=== PATIENT | female | born 1995 | race Hispanic/Latino ===

== ENCOUNTER 2016-04-23 19:43 | Emergency (ER) | payer OTHER ==
[~2016-04-23] VITALS: Ht 162.6 cm; Wt 76.4 kg
[2016-04-23 20:01] VITALS: BP 108/70; PULSE 115; RESP 18; O2SAT 96
[2016-04-23] MEDS ORDERED: 0.9% Sodium Chloride 1,000 ML IV ONE (20:22)
[2016-04-23] MEDS ORDERED: oxyCODONE-Acetamin 5-325 mg Tablet PO ONE (20:40)
[2016-04-23 20:46] LABS: BASOPHILS % (AUTO) 0.1 % (0-3); EOSINOPHILS % (AUTO) 0.2 % (0-5); MONOCYTES % (AUTO) 4.1 % (4-12); Mean Corpuscular Hemoglobin 30.3 pg (27.0-35.0); Mean Corpuscular Volume 87.4 fL (81-100); NEUTROPHILS % (AUTO) 91.3 % (40-74); Platelet Count 346 bil/L (150-400)
[2016-04-23] MEDS: Ondansetron 2 mg/mL 2 mL Inj IV PRN ×2 (20:53→22:47)
--- NOTE | 2016-04-23 20:53 | ED.REPORT ---
HPI-General Illness Date of Service Apr 23, 2016 ED Provider: Carl William DO History of Present Illness: Patient is a 20 y.o. F with past medical history of asthma, chronic mid backpain, otherwise healthy Back pain constant bilateral mid - low back, described as sharp "as if someone was stabbing me" pain does not radiate. Began afternoon today without provocation Worse with standing and walking. Made better with laying on flat surface. No recent injuries, similar pain to prior episodes Saw PCP last week for back problems, PCP Dr. Jj Tai concerned for anemia subjective fever evening Associated with headaches, vomiting, chills, dizziness Denies dysuria, constiaption, diarrhea, numbness tingling, changes in vision, Patient stated that pain is assocated with periods, currently menstruating, Not currently sexually active, uses condoms Nursing Notes Stated Complaint: BACK ACHE,VOMITING,CHILLS,DIZZY Chief Complaint: General Complaint Nursing Notes Reviewed: Yes Allergies: Coded Allergies: No Known Allergies (Unverified Allergy, Unknown, 08/07/13) General Time Seen by MD: 20:30 Chief Complaint Back pain (bilateral mid back) Hx Obtained From: Patient Arrived By: Walk-in Sudden in Onset?: Yes Onset Occurred: 5 - 8 hours ago Symptom Duration: Since onset Location: : Back Quality: Sharp Severity: Current: Pain level 10 out of 10 Severity: Maximum: Pain level 5 out of 10 Past Medical History Past Medical History Asthma Chronic back pain Past Surgical History none reported Smoking History Never Smoker Social History Alcohol Use: "Social" Review of Systems Full Review of Systems Constitutional: Reports: Chills, Fever Eyes: Denies: Blurred bilateral, Photophobia, Visual loss bilateral Respiratory: Denies: Dyspnea on exertion, Hemoptysis, Non-productive cough Cardiovascular: Denies: Chest pain, Edema, Palpitations GI: Reports: Abdominal pain, Nausea, Vomiting, Denies: Bloody/tarry stool, Constipation, Diarrhea Female: Denies: Dysuria, Flank pain, Hematuria, Pelvic pain, Urinary frequency, Urination decreased Complete sys rev & neg: except as marked. Physical Exam Vital Signs Vital Signs Date Time Temp Pulse Resp B/P Pulse Ox O2 Delivery O2 Flow Rate FiO2 04/24/16 01:08 36.9 99 18 97/54 97 Room Air 04/23/16 23:24 36.9 99 18 97/54 97 Room Air 04/23/16 20:01 37.9 115 18 108/70 96 Room Air Initial VS: Reviewed, Vital signs abnormal (tachycardic, elevated temp) General/Constitutional: Well-developed, Well-nourished Head / Eyes: Atraumatic, Normocephalic, PERRL ENT: Mucous membranes moist, Conjunctiva normal, No scleral icterus Neck: Supple, Non-tender, Full range of motion Respiratory: Breath sounds normal, Clear to auscultation, No respiratory distress Cardiovascular: Regular rate & rhythm, Heart sounds normal, Intact distal pulses Back: No CVA tenderness Extremities: Vascular intact, Neuro intact, No swelling, No tenderness Skin: Warm, Dry, No cyanosis Neurologic: Alert, Oriented, Nonfocal Tenderness/Guarding/Rebound: Positive: Tender LLQ... (Mild), Tender RLQ... ( Mild), Tender RUQ... (Mild), Negative: Guarding involuntary, Guarding voluntary, Rebound localized Interpretation & Diagnostics Lab Results Interpretation Result Diagram: 04/23/16203504/23/162035 Test 04/23/16 20:36 04/23/16 20:43 White Blood Count 17.6th/mm3 (3.8-10.1) Red Blood Count 4.59mil/mm3 (3.90-5.20) Hemoglobin 13.9g/dL (12.0-15.6) Hematocrit 40.1% (35.0-46.0) Mean Corpuscular Volume 87.4fL (81-100) Mean Corpuscular Hemoglobin 30.3pg (27.0-35.0) Mean Corpuscular Hemoglobin Concent 34.7% (32.0-37.0) Red Cell Distribution Width 12.7% (12.3-15.4) Platelet Count 346bil/L (150-400) Neutrophils (%) (Auto) 91.3% (40-74) Lymphocytes (%) (Auto) 4.0% (14-46) Monocytes (%) (Auto) 4.1% (4-12) Eosinophils (%) (Auto) 0.2% (0-5) Basophils (%) (Auto) 0.1% (0-3) D-Dimer < 0.5mg/L (<0.50) Sodium Level 136mEq/L (134-144) Potassium Level 4.4mEq/L (3.5-5.2) Chloride Level 100mEq/L (97-108) Carbon Dioxide Level 22mmol/L (18-29) Blood Urea Nitrogen 13mg/dL (6-20) Creatinine 0.54mg/dL (0.57-1.00) Estimat Glomerular Filtration Rate 208mL/min (>59) Glucose Level 121mg/dL (60-99) Lactic Acid Level 1.3mmol/L (0.4-2.0) Calcium Level 9.2mg/dL (8.5-10.1) Magnesium Level 1.9mg/dL (1.6-2.6) Total Bilirubin 0.6mg/dL (0.0-1.2) Aspartate Amino Transf (AST/SGOT) 16U/L (0-50) Alanine Aminotransferase (ALT/SGPT) 12U/L (0-32) Alkaline Phosphatase 80U/L (25-150) Total Protein 7.6g/dL (6.4-8.4) Albumin 4.3g/dL (3.4-5.0) Lipase 13U/L (13-60) Procalcitonin 0.08ng/mL (0.00-0.08) Urine Color Yellow (YELLOW) Urine Appearance Clear (CLEAR,HAZY) Urine pH 5.5 (5.0-8.0) Urine Specific Murray 1.025 (1.003-1.035) Urine Protein Negativemg/dL (NEG,TRACE) Urine Glucose (UA) Negativemg/dL (NEGATIVE) Urine Ketones 15mg/dL (NEGATIVE) Urine Occult Blood Moderate (NEGATIVE) Urine Nitrite Negative (NEGATIVE) Urine Bilirubin Negative (NEGATIVE) Urine Urobilinogen Normalmg/dL (NORMAL) Urine Leukocyte Esterase Negative (NEGATIVE) Urine RBC 0-2/hpf (0-2) Urine WBC 0-5/hpf (0-5) Urine Epithelial Cells Moderate/hpf (NONE-MOD) Urine Crystals None seen (NONE SEEN) Urine Bacteria Few/hpf (NONE-FEW) Urine Hyaline Casts None/lpf (NONE) Urine Granular Casts None seen (NONE SEEN) Urine Waxy Casts None seen (NONE SEEN) Urine Red Blood Cell Casts None seen (NONE SEEN) Urine White Blood Cell Casts None seen (NONE SEEN) Urine Mucus Present (None Seen) Urine Trichomonas None seen (NONE SEEN) Urine Yeast None (NONE SEEN) Urinalysis Comment None Urine Culture Reflexed Not indicated Re-Eval/Medical Decision Med Decision/Clinical Course Patient is a 20 y.o. F with sudden onset mid to low back pain, associated with abdominal pain, nauea, vomiting, fever, chills. V/S at presentation meet criteria for SIRS, work up to identify source of infection and sepesis ruled out. Patient signs and symptoms due to acute constipation. With patient histoy of heavy periods and assocated back pain, raises concern for catamenial pneumothroax. DDx Gallstones, UTI, pyelonephritis, pancratitis, gastritis,catamenial pneumothrorax, pulmonary emboli, constipation, gastritis R/o Urine preg negative UA negative for source of infection CBC elv WCT 17 CMP negative Lipase negative CXR negative for signs of infection CT abdomen and pelvis no signs of acute infection, hydronephrosis, signs of consitpation D-dimer negative no chest CTA indicated Discharge & Departure Primary Impression: Back pain Back pain location: thoracic back pain Chronicity: acute Back pain laterality: midline Qualified Code: M54.6 - Pain in thoracic spine Additional Impressions: Abdominal pain Abdominal location: generalized Qualified Code: R10.84 - Generalized abdominal pain Febrile illness Disposition: Home Discharge Condition All VS Reviewed: Yes Condition: Stable Patient Instructions: Acute Abdominal Pain (DC), Constipation (DC) Additional Instructions: During you visit to [facility] Emergency Department we obtained blood work for infectious markers, hemoglobin levels, and electrolytes. We obtained high resolution imaging of your brain and chest and abdomen. It did not show any emergent signs of infection. You symptoms are likely due to dehydration and constipation as visualized on the CT scan of your abdomen. All your lab values were within normal limits and your imaging showed no acute processes or abnormalities. Your vital signs were stable and safe for discharge. We will send you home with - Pain medications Percocet - Nausea medications Zofran - Migralam - Colace When taking Percocet pain medications DO NOT drive, DO NOT drink alcohol , DO NOT take extra acetaminophen (Tylenol). Do not hesitate to call emergency services or your primary care physician if you experience any of the following. - High unrelenting fevers. - Uncontrolled vomiting. - Severe hypertension. - Syncope or loss of consciousness. - Chest pain or severe shortness of breath. Follow up with your primary care physician in 1-2 weeks time following your emergency department visit for medication checks and general well-being. Referrals: Jj Tai MD (PCP) Attending Statement I took a history performed a physical examination. I concur with the resident' s note above. Healthy 20-year-old female with upper abdominal pain radiating into her back. She also some mildly pleuritic lower thoracic pain. No midline spinal pain. No evidence of a myelopathy. She had diffusely tender abdomen without rebound guarding or rigidity. Diagnostics were performed. Myocardial infarction ruled out based on history and physical examination and risks. Pulmonary emboli seems unlikely with a negative d-dimer. Pneumothorax ruled out. Acute abdominal pathology seems unlikely based on history physical and diagnostics. She was symptomatically treated at discharge was pain-free and looked well. Recommended close outpatient follow-up. copies to: Jj Tai MD, AARON J DO Apr 23, 2016 20:36 Carl William DO Apr 24, 2016 19:22
[2016-04-23 20:56] LABS: APPEARANCE,URINE CLEAR (CLEAR,HAZY); COLOR,URINE YELLOW (YELLOW); OCCULT BLOOD,URINE MODERATE (NEGATIVE); PH,URINE 5.5 (5.0-8.0); UROBILINOGEN,URINE NORMAL (NORMAL)
[2016-04-23 21:09] LABS: Magnesium 1.9 mg/dL (1.6-2.6)
[2016-04-23] MEDS ORDERED: 0.9% Sodium Chloride 1,000 ML IV SCH (21:10)
--- NOTE | 2016-04-23 21:50 | DRSVH ---
PROCEDURE: X-RAY CHEST, TWO VIEWS ([id number]) INDICATIONS: sob TECHNIQUE: 2 views of the chest were acquired. COMPARISON: [facility], , CHEST 2VW, 12/21/2008, 15:38. FINDINGS: Surgical changes and devices: None. Lungs and pleura: No pleural effusions or pneumothorax. Lungs are clear. Mediastinum: Mediastinal contours are normal. Heart size is normal. Bones and chest wall: No suspicious bony abnormalities. Soft tissues appear unremarkable. IMPRESSION: No abnormality is seen in the two-view chest. Cause of shortness of breath is not identif ied. Dictated by: Jose Daniel Durán M.D. on 04/23/2016 at 21:49 Approved by: Jose Daniel Durán M.D. on 04/23/2016 at 21:50
[2016-04-23 23:24] VITALS: BP 97/54; PULSE 99; RESP 18; O2SAT 97
[2016-04-24] MEDS ORDERED: _Ondansetron ODT 4 mg Tablet PO PRN (00:05)
[2016-04-24] MEDS ORDERED: _oxyCODONE/APAP 5-325 mg Tablet PO PRN (00:05)
[2016-04-24] MEDS ORDERED: Polyethylene Glycol (PEG) 17 Gm Powder PO ONE (00:05)
[2016-04-24 01:08] VITALS: BP 97/54; PULSE 99; RESP 18; O2SAT 97
--- NOTE | 2016-04-24 07:40 | DRSVH ---
PROCEDURE: CT ABDOMEN AND PELVIS WITH CONTRAST ([id number]) INDICATIONS: Elevated white count with abdominal and back pain TECHNIQUE: After the administration of oral and intravenous contrast, 5 mm thick sections acquired from the diap hragms to the symphysis. 5 mm thick coronal and sagittal reformats were performed. For radiation do se reduction, the following was used: automated exposure control, adjustment of mA and/or kV accordi ng to patient size. COMPARISON: [facility], US, US ABDOMEN, 04/23/2016, 21:41. FINDINGS: Image quality: Excellent. ABDOMEN: Lung bases: There is mild dependent atelectasis. Heart size is normal. There is a small hiatal carisa ia. Solid organs: Liver and spleen are normal in size and enhancement. Gallbladder appears within miroslava l limits. Biliary system is non-dilated. Pancreas enhances normally. No adrenal nodules. Kidneys are normal in size and enhancement, without hydronephrosis. Peritoneum and bowel: Stomach, small bowel, and colon loops are normal in caliber and wall thickness . The appendix is normal in appearance. No free fluid or air. Nodes and vessels: No retroperitoneal or mesenteric adenopathy. Aorta and inferior vena cava are no rmal in caliber. Miscellaneous: No ventral hernias. PELVIS: Genitourinary: Bladder wall thickness is normal. Miscellaneous: No inguinal hernias or adenopathy. Bones: No suspicious bony lesions. No vertebral body compression fractures. IMPRESSION: 1. No definite acute intra-abdominal abnormality. Specifically, no evidence of appendicitis or hydr onephrosis. Dictated by: Tyshawn Stewart M.D. on 04/24/2016 at 7:24 Approved by: Tyshawn Stewart M.D. on 04/24/2016 at 7:38
--- NOTE | 2016-04-24 08:46 | DRSVH ---
PROCEDURE: US ABDOMEN INDICATIONS: abdominal tenderness RUQ TECHNIQUE: Real-time scanning was performed of the abdominal and retroperitoneal organs, with image documentatio n. COMPARISON: [facility], CT, CT ABD PELVIS W CON, 04/23/2016, 22:23. FINDINGS: Liver length: 18.29 cm Gallbladder Wall Thickness: 1.70 mm CHD: 1.10 mm CBD: 1.60 mm Spleen length: 8.74 cm Right kidney length: 10.71 cm Left kidney length: 6.51 cm Aorta(Proximal): 2.02 cm Aorta(Mid): 1.65 cm Aorta(Distal): 1.49 cm RCIA: 1.07 cm LCIA: 1.00 cm Liver: Liver is normal in size and homogeneous in echotexture. Gallbladder: Normal gallbladder. Biliary ducts: Intrahepatic bile ducts are non-dilated. Extrahepatic bile duct caliber is normal. Normal is 6-7 mm or less in diameter, or 10 mm or less post-cholecystectomy. Pancreas: Visualized portions of the pancreas are sonographically normal. Spleen: Spleen is normal in size and homogeneous in echotexture. Kidneys: Kidneys are normal in size and echotexture. No hydronephrosis or nephrolithiasis. No sunitha d masses. Aorta: Visualized aorta is normal in caliber at less than 3 cm. Iliacs: Proximal common iliac arteries are normal in caliber at less than 2.5 cm. IVC: Intrahepatic inferior vena cava is patent. Miscellaneous: No free abdominal fluid. IMPRESSION: Limited exam demonstrating no definite source for right upper quadrant pain. Dictated by: Mayco Campos Amol Interpreted: Mary Hoff MD on 04/24/2016 at 8:44 Transcribed by: REGINE on 04/24/2016 at 8:46 Approved by: Mary Hoff M.D. on 04/24/2016 at 16:18
== END 2016-04-24 01:09 | disposition home or self-care (01) ==
LOC: SED 19:43
DX: M54.6 Pain in thoracic spine (principal); R10.84 Generalized abdominal pain; R50.9 Fever, unspecified
CPT/HCPCS: 36415; 71020; 74177; 76700; 80053; 81000; 81025; 82308; 83605; 83690; 83735; 85025; 85379; 96361; 96374; 96375; 96376; 99285; J2405; J7030; Q9967

== ENCOUNTER 2016-08-29 13:34 | Emergency (ER) | payer OTHER ==
[2016-08-29 13:49] VITALS: BP 106/73; PULSE 98; RESP 14; O2SAT 99
[2016-08-29 14:49] LABS: BASOPHILS % (AUTO) 0.5 % (0-3); EOSINOPHILS % (AUTO) 2.1 % (0-5); Mean Corpuscular Hemoglobin 29.7 pg (27.0-35.0); Mean Corpuscular Volume 85.7 fL (81-100); NEUTROPHILS % (AUTO) 66.4 % (40-74); Platelet Count 306 bil/L (150-400)
[2016-08-29 14:54] VITALS: BP 104/61; PULSE 88; RESP 17; O2SAT 98
--- NOTE | 2016-08-29 15:32 | ED.REPORT ---
HPI-General Illness Date of Service Aug 29, 2016 ED Provider: Gopal Aguilar MD Patient is a 20 year old female with a hx of asthma who presents to the ED s/p consuming approximately 20 [id number] sleeping pills at 1320 today. She reports she got in an argument with her mom and took the pills to try to hurt herself. Patient does not know what pills they were but reports they were purple capsules. Her only complaint is fatigue. She denies hallucinations, homicidal ideation, trouble breathing, or any other symptoms. She reports she has considered suicide before but has never gotten this far before. She did not drink alcohol today. Nursing Notes Stated Complaint: SUICIDAL IDEATION Chief Complaint: General Complaint Nursing Notes Reviewed: Yes Allergies: Coded Allergies: No Known Allergies (Unverified Allergy, Unknown, 08/29/16) General Time Seen by MD: 15:10 Chief Complaint Other (Suicide attempt ) Hx Obtained From: Patient Arrived By: Walk-in Sudden in Onset?: Yes Onset Occurred: 1 - 4 hours ago Severity: Current: No pain currently Severity: Maximum: No pain Associated with: Denies: Difficulty breathing Pertinent Negative: Pt denies other symptoms Context Related History: Reports Asthma, Denies Seizure disorder Past Medical History Past Medical History Asthma Chronic back pain Past Surgical History none reported Smoking History Never Smoker Social History Alcohol Use: "Social" Drug Use: Denies drug use Ambulatory Status Independent Review of Systems +suicide attempt via overdose Full Review of Systems Respiratory: Denies: Shortness of breath Psychiatric: Denies: Hallucinations, auditory, Hallucinations, visual, Homicidal ideation Complete sys rev & neg: except as marked. Physical Exam Nursing note and vitals reviewed. Constitutional: Well-developed, well-nourished. Not diaphoretic. Head: Normocephalic and atraumatic. Mouth/Throat: Oropharynx is clear and moist. No oropharyngeal exudate. Neck: Supple, no tracheal deviation. Cardiovascular: Normal rate, regular rhythm. Equal and intact distal pulses throughout. Pulmonary/Chest: Effort normal and breath sounds normal. No respiratory distress. Musculoskeletal: Range of motion grossly intact, moving all extremities. Neurological: AOx3. Grossly nonfocal exam. Strength and sensation intact and equal to bilateral upper and lower extremities. Skin: Warm and dry, no rashes or pallor appreciated. Psychiatric: Appropriate mood and affect. Behavior appears normal. Active suicidal ideation with plan. No HI or auditory or visual hallucinations. Vital Signs Vital Signs Date Time Temp Pulse Resp B/P Pulse Ox O2 Delivery O2 Flow Rate FiO2 08/29/16 22:30 72 18 95/39 100 Room Air 08/29/16 16:57 59 16 115/63 98 Room Air 08/29/16 14:54 88 17 104/61 98 Room Air 08/29/16 13:49 36.2 98 14 106/73 99 Room Air Interpretation & Diagnostics Lab Results Interpretation Result Diagram: 08/29/16 1439 08/29/16 1439 Test 08/29/16 14:37 08/29/16 14:39 08/29/16 18:20 Hold Urine Received (Received) White Blood Count 7.5th/mm3 (3.8-10.1) Red Blood Count 4.27mil/mm3 (3.90-5.20) Hemoglobin 12.7g/dL (12.0-15.6) Hematocrit 36.6% (35.0-46.0) Mean Corpuscular Volume 85.7fL (81-100) Mean Corpuscular Hemoglobin 29.7pg (27.0-35.0) Mean Corpuscular Hemoglobin Concent 34.7% (32.0-37.0) Red Cell Distribution Width 13.0% (12.3-15.4) Platelet Count 306bil/L (150-400) Neutrophils (%) (Auto) 66.4% (40-74) Lymphocytes (%) (Auto) 22.6% (14-46) Monocytes (%) (Auto) 8.0% (4-12) Eosinophils (%) (Auto) 2.1% (0-5) Basophils (%) (Auto) 0.5% (0-3) Sodium Level 142mEq/L (134-144) Potassium Level 3.8mEq/L (3.5-5.2) Chloride Level 107mEq/L (97-108) Carbon Dioxide Level 21mmol/L (18-29) Blood Urea Nitrogen 11mg/dL (6-20) Creatinine 0.47mg/dL (0.57-1.00) Estimat Glomerular Filtration Rate 245mL/min (>59) Glucose Level 118mg/dL (60-99) Calcium Level 9.2mg/dL (8.5-10.1) Total Bilirubin 0.3mg/dL (0.0-1.2) Aspartate Amino Transf (AST/SGOT) 18U/L (0-50) Alanine Aminotransferase (ALT/SGPT) 23U/L (0-32) Alkaline Phosphatase 72U/L (25-150) Total Protein 7.3g/dL (6.4-8.4) Albumin 4.0g/dL (3.4-5.0) Thyroid Stimulating Hormone (TSH) 0.469uIU/mL (0.450-4.500) Salicylates Level < 3.0ug/mL (30-250) Acetaminophen Level < 15.0ug/mL Rx (10-25) ECG Interpretation ECG Interpretation: sinus rate 76 Sinus pause Time: 14:50 Interpreted by: ED physician Re-Eval/Medical Decision Med Decision/Clinical Course 20-year-old female presenting to the ED for evaluation after reportedly intentionally ingesting approximately 20 "sleeping pills" earlier today. She does have a history of depression and states that she was trying to harm herself , however upon reassessment feels improved. Social work involved and feels that the patient can contract for safety and has appropriate outpatient resources available to her. Her acetaminophen level was negative 2. She does not have any particular toxidrome that would account for her ingestion, has improved while in the ED despite being initially somewhat sleepy. After asking her if it sounds like she may have taken some melatonin. She feels well at this time; given reassuring workup, it seems reasonable to discharge her home with careful return precautions, PCP follow-up. I do not feel like she warrants involuntary detainment. Patient agreeable to the plan as stated, no further questions. Time of Eval: 21:57 Re-Evaluation/Progress Note: Rechecked patient who is feeling better and has been given resources by social work. Discussed plan for discharge. Patient understands and agrees with plan. All questions addressed at this time. Consultation #1: Consulted With: aquacultural worker supervisor Call Returned at: 18:28 Crystal Cutter: Will see patient Note: Discussed pt's case. Will see pt. Consultation #2: Call Returned at: 18:31 Note: Called poison control. Observe pt until she is asymptomatic. Consultation #3: Consulted With: aquacultural worker supervisor Call Returned at: 19:45 Note: Discussed pt's case. She is safe to go home. Discharge & Departure Primary Impression: Depression Depression Type: unspecified Qualified Code: F32.9 - Major depressive disorder, single episode, unspecified Additional Impressions: Overdose Encounter type: initial encounter Injury intent: intentional self-harm Qualified Code: T50.902A - Poisoning by unspecified drugs, medicaments and biological substances, intentional self-harm, initial encounter Suicidal ideation Disposition: Home Discharge Condition All VS Reviewed: Yes Condition: Improved Patient Instructions: Adult Overdose (ED), Depression (ED), Suicide Prevention for Adults (ED) Additional Instructions: Thank you for entrusting us with your care. Follow up as discussed within the next week.. See the attached packets for information pertaining to today's visit. Return to the emergency department if you experience worsening feelings or any other symptoms. Referrals: Jj Tai MD (PCP) Scribe Attestation Portions of this note were transcribed by Angel Luis James. I, Dr. Aguilar personally performed the history, physical exam and medical decision-making; I reviewed and confirmed the accuracy of the information in the transcribed note. Signed by: Angel Luis James 08/29/16, [id number] copies to: Jj Tai MD, William B MD Aug 29, 2016 15:32 ANGEL LUIS JAMES Aug 29, 2016 16:51
[2016-08-29 16:57] VITALS: BP 115/63; PULSE 59; RESP 16; O2SAT 98
[2016-08-29 22:30] VITALS: BP 95/39; PULSE 72; RESP 18; O2SAT 100
== END 2016-08-29 22:32 | disposition home or self-care (01) ==
LOC: SED 13:34
DX: T42.72XA Poisoning by unspecified antiepileptic and sedative-hypnotic drugs, intentional self-harm, initial encounter (principal); F32.9 Major depressive disorder, single episode, unspecified; X83.8XXA Intentional self-harm by other specified means, initial encounter; Y93.89 Activity, other specified; Y92.9 Unspecified place or not applicable; Y99.8 Other external cause status; J45.909 Unspecified asthma, uncomplicated
CPT/HCPCS: 36415; 80053; 84443; 85025; 93005; 99284; G0480